=== PATIENT | female | born 1980 | race Two or more races ===

== ENCOUNTER → 2018-10-26 | Outpatient (CLI) | payer OTHER | END | disposition home or self-care (01) | LOC: PRENATAL 10-18 14:43 | DX: O09.511 Supervision of elderly primigravida, first trimester (principal); O09.01 Supervision of pregnancy with history of infertility, first trimester; Z34.00 Encounter for supervision of normal first pregnancy, unspecified trimester ==

== ENCOUNTER 2019-03-15 10:23 | Inpatient (IN) | payer OTHER ==
[~2019-03-15] VITALS: Ht 170.2 cm; Wt 80.7 kg
[~2019-03-15 10:23] MED LIST: OBSTETRIX DHA1 EACH
== END 2019-03-29 11:52 | disposition home or self-care (01) | DRG 798 ==
LOC: LDR 03-27 05:34 → SURG-SUITE 03-27 17:48 → OB/GYN 04-09 12:45
PROVIDERS: ADMIT Specialist
PROC: 10E0XZZ Delivery of Products of Conception, External Approach (ICD-10-PCS; principal; 2019-03-27)
PROC: 10907ZC Drainage of Amniotic Fluid, Therapeutic from Products of Conception, Via Natural or Artificial Opening (ICD-10-PCS; 2019-03-27)
PROC: 0W8NXZZ Division of Female Perineum, External Approach (ICD-10-PCS; 2019-03-27)
PROC: 4A1HXCZ Monitoring of Products of Conception, Cardiac Rate, External Approach (ICD-10-PCS; 2019-03-27)
PROC: 0UL70ZZ Occlusion of Bilateral Fallopian Tubes, Open Approach (ICD-10-PCS; 2019-03-28)
DX: O80 Encounter for full-term uncomplicated delivery (principal); Z37.0 Single live birth; Z3A.38 38 weeks gestation of pregnancy; Z30.2 Encounter for sterilization

== ENCOUNTER → 2019-03-22 | Outpatient (CLI) | payer OTHER | END | disposition home or self-care (01) | LOC: PRENATAL 15:05 | DX: O26.843 Uterine size-date discrepancy, third trimester (principal); O09.523 Supervision of elderly multigravida, third trimester; O32.9XX0 Maternal care for malpresentation of fetus, unspecified, not applicable or unspecified ==

== ENCOUNTER 2019-03-23 08:33 | Outpatient (CLI) | payer OTHER | END 2019-03-23 13:52 | disposition home or self-care (01) | LOC: OBS/DEL 08:33 | DX: O32.1XX0 Maternal care for breech presentation, not applicable or unspecified (principal) ==

== ENCOUNTER 2021-04-28 01:44 | Emergency (ER) | payer OTHER ==
[~2021-04-28] VITALS: Ht 170.2 cm; Wt 74.8 kg
== END 2021-04-28 07:38 | disposition home or self-care (01) ==
LOC: EMR PED 01:44 → ER 01:44 → EMR PED 02:49 → ER 02:49
DX: K52.89 Other specified noninfective gastroenteritis and colitis (principal)